=== PATIENT | female | born 1985 | race Caucasian/White ===

== ENCOUNTER 2018-06-03 06:53 | Observation (INO) | payer OTHER ==
[2018-06-03] MEDS ORDERED: NS 1,000 ML IV ONE (07:05)
[2018-06-03] MEDS ORDERED: LIDOCAINE 1% 300 MG/30 ML SDV ONE (07:44)
[2018-06-03] MEDS ORDERED: HEPARIN 10,000 UNIT/10 ML MDV (1,000 UNIT/ML) ONE (07:44)
[2018-06-03] MEDS ORDERED: BUPIVACAINE 0.75% 10 ML SDV ONE (07:45)
[2018-06-03] MEDS ORDERED: ISOPROTERENOL HCL/D5W 0.2 MG/50 ML BAG IV ONE (07:45)
[2018-06-03 07:49] LABS: PLATELET COUNT 187 10^3/uL (150-400)
[2018-06-03] MEDS ORDERED: PROPOFOL/EMULSION 500 MG/50 ML BOTTLE IV ONE ×4 (07:53→10:01)
[2018-06-03] MEDS ORDERED: PROPOFOL 200 MG/20 ML VIAL ONE (07:53)
[2018-06-03] MEDS ORDERED: ROCURONIUM 100 MG/10 ML VIAL ONE ×2 (08:02→10:03)
[2018-06-03] MEDS ORDERED: SUGAMMADEX SODIUM 200 MG/2 ML VIAL IVP ONE ×2 (08:03→10:43)
--- NOTE | 2018-06-03 08:20 | PDANEPAE ---
ANE Past Medical History - Cardiovascular History Hx Hypertension: No Hx Arrhythmias: Yes Hx CHF / Valvular Disease: No Hx Palpitations: Yes - Pulmonary History Hx COPD: No Hx Asthma/Reactive Airway Disease: No Hx Sleep Apnea: No - Neurologic History Hx Cerebrovascular Accident: No - Endocrine History Hx Diabetes: No Hypothyroid: No - Renal History Hx Renal Disorders: No - Liver History Hx Hepatic Disorders: No - Neurological & Psychiatric Hx Hx Neurological and Psychiatric Disorders: No - Cancer History Hx Cancer: No - Congenital Disorder History Hx Congenital Disorders: No - GI History GERD: no Hx Gastrointestinal Disorders: No ANE Review of Systems Review of Systems: ANE Patient History - Allergies Allergies/Adverse Reactions: No Known Allergies Allergy (Verified 07/27/13 17:27) - Home Medications Home Medications: Herbals/Supplements -Info Only 1 ea PO DAILY 05/27/18 [Last Taken 06/02/18] Ibuprofen [Motrin (*)] 200 mg PO DAILY PRN 05/27/18 [Last Taken Unknown] [place]-3 Fatty Acids [Fish Oil 1000 mg (*)] 1,000 mg PO DAILY 05/27/18 [Last Taken 06/02/18] - Smoking Hx Smoking Status: Never smoked ANE Labs/Vital Signs - Labs Result Diagrams: 06/03/18 07:20 06/03/18 07:20 - Vital Signs Height: 175 cm Weight: 68.039 kg ANE Physical Exam - Airway Neck exam: FROM Mallampati Score: Class 1 Mouth exam: normal dental/mouth exam - Pulmonary Pulmonary: no respiratory distress, no rales or rhonchi, clear to auscultation - Cardiovascular Cardiovascular: regular rate and rhythym, no murmur, rub, or gallop - ASA Status ASA Status: II ANE Anesthesia Plan Anesthesia Plan: general endotracheal anesthesia Total IV Anesthesia: Yes
--- NOTE | 2018-06-03 08:21 | POSTANESTH ---
Post Anesthetic Evaluation Cardiovascular Status: Normal, Stable Respiratory Status: Normal, Stable Level of Consciousness/Mental Status: Can Participate in Eval Pain Control: Adequate, Prn Tx Ordered Nausea/Vomiting Control: Adequate, Prn Tx Ordered Complications Possibly Related to Anesthesia: None Noted
[2018-06-03 08:26] LABS: INR 0.99 (0.83-1.16); PROTIME(PATIENT) 12.7 SEC (12.0-15.0)
--- NOTE | 2018-06-03 08:34 | PDGENHP ---
History & Physical Chief Complaint: PVCs History of Present Illness: High-frequency PVCs, failed medical management Relevant Physical Exam: A&Ox4, no apparent distress, lungs CTA, sinus bradycardia, S1, S2, pulses 2+ bilaterally, no edema Cardiorespiratory Assessment: Proceed with PVC ablation as planned for today
[2018-06-03] MEDS ORDERED: PHENYLEPHRINE HCL 100 MCG/ML SYR ONE (09:15)
[2018-06-03] MEDS ORDERED: ePHEDrine SULFATE 25 MG/5 ML SYR ONE (09:15)
--- NOTE | 2018-06-03 11:04 | EPPROC ---
Electrophysiology Procedure Note: ELECTROPHYSIOLOGIC STUDY AND CATHETER MEDIATED ABLATION OF PREMATURE VENTRICULAR BEATS ORIGINATING IN THE RIGHT VENTRICULAR OUTFLOW TRACT: Procedures performed: 06594-23 EP evaluation with RA/RV/LA pace/record, with arrhythmia induction 34750-11 EP evaluation with RA/RV pace record, insert/reposition catheter, with arrhythmia induction 62731 Intracardiac catheter ablation, VT arrhythmogenic focus Fluoroscopy INDICATION: Recurrent PVC, symptomatic The patient arrived in the Electrophysiology Laboratory in the fasting state. The right clavicular region, right groin, and left groin area were prepped and draped in the usual sterile manner. Appropriate non-invasive blood pressure, pulse oximetry and end-tidal CO2 monitoring was established. Anesthesiologist administered propofol anesthesia. PVC were rare, one PVC occuring every 2-3 minutes. PVC template was obtained for mapping. All catheters were placed percutaneously using the modified Seldinger technique , and advanced into position under fluoroscopic guidance. Two 8 Fr sheath were placed in RFV. Mapping catheter and ICE catheter were placed via RFV . Heparin was administered to keep ACT > 200 seconds. Programmed stimulation was performed from the right atrium, right ventricle and CS (left atrium). The patient arrived to the electrophysiology laboratory in normal sinus rhythm with rare PVC. PVC morphology LBBB inferior axis with QRS transition between V3 and V4. PVC were not present post sedation. Soundstar ICE catheter was used to obtain contours of RV, LV, pulmonic/ tricuspid valves, aorta and aortic valve. A 3.5 mm irrigated STSF [employer] ablation catheter with a magnetic sensor for the Carto 3D electroanatomic mapping system was used for mapping. Activation mapping could not be performed due to PVC paucity. Pace mapping was performed. 98% match on Bard and Carto system was obtained, 12/12 morphology map at the leftward aspect of RV outflow tract, just below PV as seen on ICE. Single [place] PVC was seen with activation 35 ms before QRS at this site. RF applications were delivered to this site. Post ablation, 200 mcg of phenylephrine was given with bradycardia occuring. No PVC were seen. The catheters were removed. Sheaths were removed in the EP lab after applying subcutaneous purse string suture. The patient was transferred to the cardiovascular holding area in stable condition. There were no apparent complications. CONCLUSIONS: 1. Premature ventricular beats originating from RV outflow tract, leftward of midline, just below pulmonic valve. 2. Successful catheter mediated ablation (pace mapping) of the premature ventricular beats. 3. No apparent complications. Patient Problems: Problems Problem Status Onset PVC (premature ventricular contraction) Acute
--- NOTE | 2018-06-03 16:18 | CPEKG ---
Test Reason : OPEN Blood Pressure : / mmHG Vent. Rate : 052 BPM Atrial Rate : 052 BPM P-R Int : 134 ms QRS Dur : 077 ms QT Int : 470 ms P-R-T Axes : 076 030 076 degrees QTc Int : 438 ms Sinus rhythm Confirmed by Judi Cobb ([id number]) on 06/03/2018 4:17:56 PM Referred By: Josh Norman Confirmed By:Judi Cobb
--- NOTE | 2018-06-03 16:25 | CPEKG ---
Test Reason : OPEN Blood Pressure : / mmHG Vent. Rate : 038 BPM Atrial Rate : 036 BPM P-R Int : 131 ms QRS Dur : 078 ms QT Int : 539 ms P-R-T Axes : 068 019 059 degrees QTc Int : 429 ms Sinus bradycardia Low voltage, extremity leads Nonspecific anterior T wave flattening Compared with 06/03/2018 anterior T wave flattening is new Confirmed by Judi Cobb ([id number]) on 06/03/2018 4:25:02 PM Referred By: Josh Norman Confirmed By:Judi Cobb
[2018-06-04 05:54] LABS: PLATELET COUNT 174 10^3/uL (150-400)
[2018-06-04 07:27] VITALS: BP 100/59
[2018-06-04] MEDS ORDERED: ASPIRIN 81 MG CHEWABLE TAB PO SCH (09:00)
--- NOTE | 2018-06-04 09:45 | ECHO ---
[email or web address] [address] [address] Main: [phone] Echocardiography Examination Transthoracic Name: SUSANA PATINO MR#: [id number] Study Date: 06/04/2018 Study Time: 07:56 AM Date of : 1985 Age: 33 year(s) Height: 175.3 cm (69 in.) Weight: 68.04 kg (150 lb.) BSA: 1.83 m2 Gender: Female Examination: Echo Contrast: Image Quality: Adequate Rhythm: Heart Rate: BP: 100 mmHg/59 mmHg Indication: F/U post EP study Procedure Staff Referring Physician: Sports Reporter: Peggy Cobb RDCS Reading Physician: Josh Norman MD Requesting Provider: Ordering Physician: Josh Norman MD Indication: F/U post EP study Measurements Chambers AV/MV Label Value Normal Value Label Value Normal Value LVDd, 2D 5.3 cm (3.9cm - 5.3cm) AV PGmean 3 mmHg LVDs, 2D 3.2 cm (2.1cm - 4cm) AV Vmax 1.25 m/s IVSd, 2D 0.8 cm (0.6cm - 1.1cm) MV E Vmax 1.22 m/s LVPWd, 2D 0.7 cm MV A Vmax 0.57 m/s LVEF, BP 71 % (55% - 70%) MV E/A 2.14 LVEF, 2D 70 % (54% - 74%) MV E/E' lateral 8.1 LA Volume, BP 51 ml (22ml - 52ml) MV E/E' septal 10.8 (0.6 - 2.6) LADs, 2D 3.3 cm (2.7cm - 3.8cm) MV E' septal 0.11 m/s LAESV index, BP 27.9 ml/m2 MV E' lateral 0.15 m/s Additional Vessels MV E/E' mean 9.38 Label Value Normal Value MV E' mean 0.13 m/s AoAsc 2.6 cm AoRoot, MM 2.8 cm (2.2cm - 3.7cm) Conclusions Normal LV function. No pericardial effusion. Patient: SUSANA PATINO Study Date: 06/04/2018 Page 1 of 2 07:56 AM Findings Left Ventricle: Left ventricle is normal in size. Normal global systolic left ventricular function. The ejection fraction, measured by Simpsons method, is 71 %. EF range is estimated at 65 % - 70 %. Left ventricle wall thickness is normal. There are no regional wall motion abnormalities. Left ventricular diastolic function parameters are normal. IVS: The septum is intact. Right Ventricle: Normal size right ventricle. Right ventricular systolic function is normal. Left Atrium: The left atrium is normal in size. IAS: Normal appearing atrial septum. Right Atrium: The right atrium is normal in size. Mitral Valve: Normal . Trivial mitral regurgitation. No mitral valve stenosis. Aortic Valve: Aortic leaflets exhibit normal cuspal separation. No aortic valve regurgitation. There is no aortic stenosis. The aortic valve is trileaflet. Tricuspid Valve: Tricuspid valve leaflets are normal in appearance and function. Trivial tricuspid regurgitation. No tricuspid valve stenosis. Pulmonary artery pressure normal. Pulmonic Valve: Pulmonic leaflets exhibit normal cuspal separation. No pulmonic valve regurgitation is evident. There is no pulmonic valve stenosis. Aorta: The aorta is normal. The aortic root size in M-mode measures 2.8 cm. The ascending aorta measures 2.6 cm. Aorta Measurements AoRoot, MM is 2.8 cm. Pulmonary Artery: The pulmonary artery morphology appears normal. IVC: The inferior vena cava is normal in size and course. Pericardium: No pericardial effusion. No pleural effusion present. Exam Details Procedure Ordered: Echo Procedure Status: Routine study Image Quality: Adequate Facility Location: Cardiac Echo 1 (No Signature Object) Patient: SUSANA PATINO Study Date: 06/04/2018 Page 2 of 2 07:56 AM [id number]
--- NOTE | 2018-06-04 16:23 | GDS ---
[f rep st] DISCHARGE SUMMARY SUPERVISING TEST CLERK: Josh Norman MD ADMISSION DIAGNOSIS: Moderate frequency symptomatic unifocal premature ventricular contractions. DISCHARGE DIAGNOSIS: Premature ventricular contractions, status post successful catheter-mediated ablation using pace mapping. PROCEDURES PERFORMED DURING HOSPITALIZATION: 1. Electrocardiogram. 2. Electrophysiology study. 3. PVC ablation using pace mapping. 4. Echocardiogram. HOSPITAL COURSE: Patient presented 06/03/2018, for a PVC ablation in the setting of frequent, symptomatic PVCs. She underwent successful catheter- mediated ablation using pace mapping of her premature ventricular beats originating from the RV outflow tract, leftward of midline, just below her pulmonic valve. Patient had no intra-procedure complications and she has done very well in the postprocedure setting. She is appropriate and stable for discharge home today. PHYSICAL EXAMINATION: GENERAL: Alert and oriented x4 in no apparent distress. VITAL SIGNS: Blood pressure 100/59, heart rate respiratory rate 20, SpO2 95% on room air, temp 37.1 degrees Celsius. RESPIRATORY: Lungs are clear to auscultation without adventitious breath sounds. CARDIAC: Normal S1, S2. No S3, S4, or murmurs. Rhythm is regular. Infrequent unifocal PVCs noted on telemetry. ABDOMEN: Normoactive bowel sounds times all 4 quadrants. No masses or tenderness. Soft to palpation. SKIN: [place], warm, dry without cyanosis, clubbing, or peripheral edema. EXTREMITIES: Right purse string suture removed intact without evidence of hematoma, redness, oozing, swelling, or warmth. Pulses are 2+ bilaterally. No edema. LABORATORY STUDIES: On today's demonstrate stable CBC and a BMP compared to preprocedure. Troponin is 0.223, please note that elevated troponin is to be expected in the postprocedure setting. PROCEDURES: Electrophysiology study and PVC ablation as mentioned above. Preliminary echocardiogram this morning demonstrates normal left ventricular systolic function without new wall motion abnormalities, pericardial effusion, or significant wall-motion abnormalities. Electrocardiogram this morning demonstrates normal sinus rhythm without any new AL interval, ST or T-wave abnormalities. DISCHARGE DISPOSITION: Patient will be discharged home in stable condition. She is under activity restrictions as below. DISCHARGE MEDICATIONS: Please see discharge medication reconciliation sheet for full details. Please note, the patient has been started on aspirin 81 mg daily for 6 weeks. DISCHARGE INSTRUCTIONS: Post PVC ablation instructions reviewed with patient in detail. 1. We discussed activity restrictions, including lifting no more than 10 pounds and avoidance of submerged bathing for 10 days. 2. She will get up and walk around every 45 minutes for 45 days. 3. We reviewed bleeding precautions, medication compliance, monitoring for signs and symptoms of infection, and monitoring for sustained arrhythmia. At the time of discharge, patient verbalizes understanding regarding all discharge instructions without questions or concerns. She will have a 24 hour Holter monitor in 3 weeks and she will follow up with Jignesh Ferrer NP in our EP clinic in 4 weeks. She will contact [facility] with any new or concerning symptoms prior to upcoming visits. Time spent on discharge greater than 30 minutes. /[id number]/MODL MTDD
--- NOTE | 2018-06-05 05:36 | CPEKG ---
Test Reason : OPEN Blood Pressure : / mmHG Vent. Rate : 037 BPM Atrial Rate : 037 BPM P-R Int : 127 ms QRS Dur : 077 ms QT Int : 525 ms P-R-T Axes : 070 012 064 degrees QTc Int : 412 ms Sinus bradycardia Low voltage, extremity leads Confirmed by Judi Cobb ([id number]) on 06/05/2018 5:36:01 AM Referred By: Josh Norman Confirmed By:Judi Cobb
== END 2018-06-04 11:54 | disposition home or self-care (01) ==
LOC: FCATH 06:53 → F2W 11:06
PROVIDERS: ADMIT Internal Medicine Cardiovascular Disease; ATTEND Internal Medicine Cardiovascular Disease
PROC: 4A023FZ Measurement of Cardiac Rhythm, Percutaneous Approach (ICD-10-PCS; principal; 2018-06-03)
PROC: 025K3ZZ Destruction of Right Ventricle, Percutaneous Approach (ICD-10-PCS; principal; 2018-06-03)
PROC: B2161ZZ Fluoroscopy of Right and Left Heart using Low Osmolar Contrast (ICD-10-PCS; principal; 2018-06-03)
PROC: 5A1213Z Performance of Cardiac Pacing, Intermittent (ICD-10-PCS; principal; 2018-06-03)
PROC: B246YZZ Ultrasonography of Right and Left Heart using Other Contrast (ICD-10-PCS; principal; 2018-06-03)
DX: I49.3 Ventricular premature depolarization (principal)
CPT/HCPCS: 93005; 93306; 93623; 93654; 93662; G0378; C1732; C1759; J1644; J2370; J2704